=== PATIENT | male | born 1950 | race Caucasian/White ===

== ENCOUNTER 2019-01-21 12:23 | Observation (INO) ==
[2019-01-21] MEDS ORDERED: ASPIRIN PO ONE (12:49)
[2019-01-21] MEDS ORDERED: NS 1,000 ML IV ONE ×2 (13:14→13:21)
[2019-01-21 13:30] LABS: BASO# 0.01 X1000 (0.0-0.2); BASO% 0.1 % (0.0-0.8); HEMOGLOBIN 14.2 g/dL (14.0-18.0); IMM GRAN# 0.07 X1000 (0.0-0.04); IMM GRAN% 0.4 % (0.0-0.5); LYMPH# 0.72 X1000 (1.2-3.4); LYMPH% 4.3 % (20.5-51.1); MCH 28.9 PG (27-31); MCV 87.4 FL (81-99); MONO# 0.91 X1000 (0.11-0.59); MONO% 5.4 % (1.7-9.3); NEUT# 15.17 X1000 (1.4-6.5); NEUT% 89.8 % (42.2-75.2); PLT 160 X1000 (130-400); RBC 4.92 XMIL (4.7-6.1); RDW 12.8 % (11.5-14.5); WBC 16.88 X1000 (4.8-10.8)
[2019-01-21 13:31] LABS: INR 1.29; PROTIME 16.3 Seconds (11.0-16.0)
[2019-01-21 13:32] LABS: PTT 33.1 Seconds (22.3-41.8)
[2019-01-21 13:42] LABS: BANDS 10 % (0-1); LYMPHS 6 % (21-51); MONO 4 % (1-9); SEGS 80 % (42-75)
[2019-01-21 13:51] LABS: AGAP 16; ALB/GLOB RATIO 1.3; ALKALINE PHOSPHATASE 76 U/L (32-122); BUN 26 mg/dL (8-22); CALCIUM 8.7 mg/dL (8.8-10.2); CHLORIDE 97 mmol/L (98-107); CK PROFILE 138 U/L (24-204); COSMO 275; CREATININE 1.2 mg/dL (0.7-1.2); ESTIMATED GFR > 60; GLUCOSE 132 mg/dL (70-104); GOT 14 U/L (10-34); GPT 13 U/L (10-44); LIPASE 22 U/L (13-60); POTASSIUM 3.8 mmol/L (3.5-5.1); SODIUM 134 mmol/L (136-145); TCO2 21 mmol/L (25-35); TOTAL BILIRUBIN 0.76 mg/dL (0.20-1.00); TOTAL PROTEIN 7.2 g/dL (6.3-8.3)
[2019-01-21] MEDS ORDERED: PHENERGAN IV PRN (14:10)
[2019-01-21] MEDS ORDERED: SODIUM CHLORIDE 0.9% INJ PRN (14:10)
[2019-01-21] MEDS ORDERED: TYLENOL PO PRN (14:10)
[2019-01-21] MEDS: NS 1,000 ML IV SCH (14:40)
--- NOTE | 2019-01-21 17:28 | Diag Imaging Result Doc PS360 ---
EXAM: CHEST-2 VIEWS 01/21/2019 HISTORY: chest pain TECHNIQUE: PA and lateral chest COMMENT: There is a perihilar mass in the left upper lobe with stranding laterally to the pleural surface. This was not present on 09/15/2016. IMPRESSION: Left upper lobe parahilar mass suspicious for carcinoma. Electronically signed by Yahir Santos 01/21/2019 5:26 PM
[2019-01-21] MEDS: FLAGYL 500 MG/NS 500 MG/100 ML IVPB IV SCH (21:20)
[2019-01-21] MEDS: LEVAQUIN 500 MG/D5W 500 MG/100 ML IVPB IV SCH (22:24)
[2019-01-22] MEDS: NS 1,000 ML IV SCH ×5 (01:40→20:33)
[2019-01-22] MEDS: FLAGYL 500 MG/NS 500 MG/100 ML IVPB IV SCH ×4 (02:12→20:33)
--- NOTE | 2019-01-22 10:16 | Diag Imaging Result Doc PS360 ---
EXAM: CHEST-2 VIEWS HISTORY: FEVER TECHNIQUE: Two views COMPARISON: 01/21/2019 FINDINGS: Left perihilar density with increased interstitial markings radiating from the hilum laterally has an appearance similar to the prior exam. The heart is mildly prominent. No pleural effusions. Right lung is clear. IMPRESSION: No interval improvement. Electronically signed by Sourav Rodgers 01/22/2019 10:13 AM
--- NOTE | 2019-01-22 11:37 | PROGRESS NOTE ---
DATE: 01/22/2019 SUBJECTIVE: The patient was admitted to [facility] with volume depletion secondary to intractable nausea, vomiting and diarrhea. We have aggressively hydrated him overnight. He is still nauseated, but has had no further episodes of emesis. He is still having some crampy abdominal pain and watery diarrhea. Stool studies were negative for Giardia and C. difficile toxin and antigen. He was has been able to sip clear liquids. His chest x-ray showed a left hilar density. He has not had any unexplained cough, night sweats, weight loss or hemoptysis. He is a former smoker. OBJECTIVE: Temperature 98.6 degrees, pulse 67, respirations 21, and BP 121/71.CV: Regular rate and rhythm. Lungs: Clear. Abdomen: Mild tenderness to deep palpation. No rebound or guarding. ASSESSMENT AND PLAN: 1. Left hilar density. He does have a leukocytosis. He does have a left shift. This certainly potentially could represent an infiltrate with his long history of smoking in the past. I am concerned about the possibility of a malignancy. We will check a CT scan of the thorax with and without contrast. 2. Acute volume depletion secondary to intractable nausea, vomiting, and diarrhea due to a suspected bacterial colitis. We will continue Levaquin and Flagyl pending stool studies. We will recheck a CBC and BMP today. cc: Eric Galeano MD
--- NOTE | 2019-01-22 11:41 | HISTORY AND PHYSICAL ---
HISTORY: The patient is a 68-year-old gentleman who is well known to me. He has a history of obstructive sleep apnea on CPAP. He presented to the ER complaining of a 3-day history of intractable nausea, vomiting, crampy abdominal pain, and explosive watery diarrhea in association with low-grade fever and chills. He had been unable to keep any liquids or solids down the past several days. He felt very dizzy and lightheaded with changes of position. He was orthostatic in the ER. His blood pressure was 125/60 sitting, and 110/60 standing. PAST MEDICAL HISTORY: Obstructive sleep apnea on CPAP. PAST SURGICAL HISTORY: None. ALLERGIES: No known drug allergies. FAMILY HISTORY: His mother at the age of 96. She had end-stage Alzheimer's dementia. SOCIAL HISTORY: He is a former smoker. He does consume alcoholic beverages. He is and lives with his spouse. REVIEW OF SYSTEMS: He denies any recent weight gain or weight loss.HEENT: He wears reading glasses. CV: No chest pain, palpitations, or anginal equivalents. Pulmonary: No shortness of breath, PND or orthopnea. GI: No reflux, dysphagia, melena, hematochezia, change in bowel habits, or rectal bleeding. See HPI. Endocrine: No polyuria. No polydipsia. No cold or heat intolerance. Skin: No easy bruisability. : No leakage of urine with coughing or laughing. Skin: No easy bruisability. Neurologic: No migraines or seizures. IMPRESSION: This is an acutely ill-appearing 68-year-old gentleman in no apparent distress. Blood pressure 125/60, sitting 110/60 standing, pulse 89, and respirations 20HEENT: Fundi with sharp discs and vessels. Pupils equal, round, reactive to light. Extraocular eye movements intact. TMs without bullae. Neck: Supple. No masses, JVD or bruits. CV: Regular rate and rhythm. Lungs: Clear. Abdomen: Mildly tender to deep palpation with good bowel sounds. There is no rebound or guarding. Extremities: Without edema. Skin: No palpable purpura. Genitourinary and Rectal: Deferred. Neurologic: Nonfocal. LABORATORY: A CBC demonstrated white count of 16.8, hemoglobin 14.2, hematocrit 43.0 and platelet count of 160,000 with a left shift. Electrolytes demonstrate the following. Sodium 134 potassium 3.8, chloride 97, BUN 26, creatinine 1.2, amylase 32, and lipase 22. ASSESSMENT AND PLAN: 1. Volume depletion secondary to intractable nausea, vomiting and diarrhea. 2. Intractable nausea, vomiting and diarrhea secondary to presumptive bacterial colitis versus viral gastroenteritis. 3. I am going to admit the patient to [facility]. I will bolus him with 2 L of normal saline wide open, and then reduce the fluids to 100 mL per hour. We will begin clear liquids and advance as tolerated. I will begin broad-spectrum antibiotics including Levaquin and Flagyl. Given his comorbid conditions and clinical presentation, I believe that it is reasonable to admit him to [facility] for fluid resuscitation. I anticipate that he will be in the hospital for at least 1 midnight, and I will therefore place him in outpatient status with observation services. cc: Eric Galeano MD
[2019-01-22 12:13] LABS: BASO# 0.01 X1000 (0.0-0.2); BASO% 0.1 % (0.0-0.8); EOS# 0.04 X1000 (0.0-0.7); EOS% 0.4 % (0.0-10.0); HEMOGLOBIN 12.2 g/dL (14.0-18.0); IMM GRAN# 0.03 X1000 (0.0-0.04); IMM GRAN% 0.3 % (0.0-0.5); LYMPH# 0.73 X1000 (1.2-3.4); LYMPH% 7.2 % (20.5-51.1); MCH 29.2 PG (27-31); MCV 88.5 FL (81-99); MONO# 0.84 X1000 (0.11-0.59); MONO% 8.3 % (1.7-9.3); MPV 9.7 FL (7.4-10.4); NEUT% 83.7 % (42.2-75.2); PLT 143 X1000 (130-400); RBC 4.18 XMIL (4.7-6.1); RDW 12.8 % (11.5-14.5); WBC 10.15 X1000 (4.8-10.8)
[2019-01-22 12:27] LABS: AGAP 11; BUN 21 mg/dL (8-22); CALCIUM 7.9 mg/dL (8.8-10.2); CHLORIDE 107 mmol/L (98-107); COSMO 285; ESTIMATED GFR > 60; GLUCOSE 109 mg/dL (70-104); POTASSIUM 4.1 mmol/L (3.5-5.1); SODIUM 141 mmol/L (136-145); TCO2 23 mmol/L (25-35)
--- NOTE | 2019-01-22 13:50 | Diag Imaging Result Doc PS360 ---
EXAM: CT THORAX W/WO CONTRAST HISTORY: left hilar density nodule TECHNIQUE: CT chest with and without intravenous contrast COMPARISON: None. FINDINGS: No aortic aneurysm or dissection. No cardiomegaly. No right pleural effusion. Trace left pleural fluid. Mildly prominent mediastinal lymph nodes. Moderate emphysematous changes. There are left upper lobe infiltrates with air bronchograms. Limited images through the upper abdomen reveal fatty infiltration of the liver and several small nonspecific hypodense hepatic nodules which may simply be cysts. None measure over 15 mm. IMPRESSION: 1.Left upper lobe pneumonia. Short-term follow-up recommended. 2.Emphysema 3.Mildly prominent mediastinal nodes 4.Fatty infiltration of the liver with scattered hypodense nodules which may simply be cysts. This exam was performed using automated exposure control, adjustment of mA or kV according to patient size, and/or use of iterative reconstruction technique. Electronically signed by Sourav Rodgers 01/22/2019 1:47 PM
[2019-01-22] MEDS: LEVAQUIN 500 MG/D5W 500 MG/100 ML IVPB IV SCH (21:51)
[2019-01-23] MEDS: FLAGYL 500 MG/NS 500 MG/100 ML IVPB IV SCH (02:23)
[2019-01-23] MEDS: NS 1,000 ML IV SCH (05:49)
[2019-01-23 08:14] VITALS: BP 128/79
[2019-01-23] MEDS ORDERED: LEVAQUIN PO SCH (09:00)
--- NOTE | 2019-01-24 08:44 | DISCHARGE SUMMARY ---
ADMISSION DATE: 01/21/2019 DISCHARGE DATE: 01/23/2019 FINAL DIAGNOSES: 1. Left upper lobe pneumonia with prominent gastrointestinal symptoms. 2. Nausea, vomiting, diarrhea, with dehydration. 3. History of obstructive sleep apnea. HOSPITAL COURSE: Mr. Wilson is a 68-year-old gentleman admitted by Dr. Jassi Galeano, with a 3-day history of intractable nausea, vomiting, crampy abdominal pain and explosive watery diarrhea associated with low grade fever and chills. He felt dizzy and lightheaded with standing, and emergency room vital signs confirmed orthostasis. PHYSICAL EXAMINATION: GENERAL: An acutely ill-appearing gentleman. LUNGS: Clear. CARDIAC: Regular rate and rhythm. ABDOMEN: Mildly tender to deep palpation with good bowel sounds. No rebound or guarding. DATABASE: CBC with white blood count 16,800 with a left shift. Sodium 134, potassium 3.8, BUN is 26, creatinine 1.2. Amylase and lipase were normal. He was admitted and treated aggressively with intravenous normal saline. He was begun on broad spectrum antibiotics to cover the possibility of colitis with Levaquin and Flagyl. His initial chest x-ray found a perihilar mass in the left upper lobe with some stranding. He is a former smoker, and a chest CT scan showed a left upper lobe infiltrate with air bronchograms but no definite mass. The radiologist recommended short-term followup. With intravenous fluids, his nausea, vomiting and diarrhea rapidly improved. On the day of discharge, he has been free of symptoms for at least 24 hours and is active and ambulatory and tolerating solid food without difficulty. DISCHARGE MEDICATIONS: Levofloxacin 500 mg daily for 5 additional days and to continue his CPAP. FOLLOWUP: He is to see Dr. Galeano as scheduled later this week for followup. cc: MD Eric Flores MD
== END 2019-01-23 10:30 | disposition home or self-care (01) ==
LOC: ED 12:23 → 3N 12:23
PROVIDERS: ADMIT Internal Medicine; ATTEND Internal Medicine